=== PATIENT | male | born 1950 | race Caucasian/White ===

== ENCOUNTER 2018-10-07 05:34 | Inpatient (IN) ==
[2018-09-21 13:22] LABS: Basophils % 0.4 % (0.0-0.8); Eosinophils # 0.1 10*3/uL (0.0-0.87); Eosinophils % 1.3 % (0.00-10.9); Hematocrit 40.3 VOL% (42.0-52.0); Hemoglobin 13.1 GM/DL (14.0-18.0); Immature Granulocytes % 0.3 %; Immature Granulocytes Absolute 0.02 #; Lymphocytes # 2.8 10*3/uL (1.4-4.0); Lymphocytes % 42.3 % (21.2-54.2); Mean Corpuscular HGB Conc 32.5 GM/DL (32-36); Mean Platelet Volume 11.4 FL (9.6-12.0); Monocytes % 9.4 % (1.7-12.7); Neutrophils % 46.3 % (38.7-73.9); Platelet Count 208 T/CUMM (130-400); Red Blood Count 4.53 MC/CUMM (3.8-5.5); Red Cell Distribution Width 14.5 % (9.3-17.3); White Blood Count 6.7 T/CUMM (4-12)
[2018-09-21 13:41] LABS: Albumin 3.4 G/DL (3.4-5.0); Bilirubin,Total 0.5 MG/DL (0.2-1.0); Calcium 9.4 MG/DL (8.5-10.1); Osmolality,Calculated 282.1 MOS/KG (273-304); Total Protein 7.6 G/DL (6.4-8.3)
[2018-10-07] MEDS ORDERED: cefTRIAXone 1,000 MG in SYRINGE 1 EACH IV ONE (06:00)
[2018-10-07] MEDS ORDERED: cefTRIAXone 1,000 MG VIAL ONE (06:08)
[2018-10-07] MEDS: LACTATED RINGERS 1,000 ML IV SCH ×2 (06:18→09:01)
[2018-10-07] MEDS ORDERED: BUPIVACAINE 0.5% 50 ML VIAL ONE (06:23)
[2018-10-07] MEDS ORDERED: FAMOTIDINE 20 MG TABLET PO ONE (06:37)
[2018-10-07] MEDS ORDERED: DIAZEPAM 5 MG TABLET PO ONE (06:37)
[2018-10-07] MEDS ORDERED: DIAZEPAM 5 MG TABLET ONE (07:00)
[2018-10-07] MEDS ORDERED: FAMOTIDINE 20 MG TABLET ONE (07:00)
[2018-10-07] MEDS ORDERED: DEXAMETHASONE 4 MG/1 ML VIAL ONE ×2 (08:23→13:47)
[2018-10-07 13:13] LABS: Apearance,Urine Slightly Hazy (Clear); Bilirubin,Urine Negative (Negative); Blood, Urine Small mg/dL (Negative); Glucose,Urine (UA) Negative (Negative); Ketones,Urine Negative (Negative); Mucus,Urine Occasional /LPF (Occasional); Nitrite,Urine Negative (Negative); Protein,Urine Negative; RBC,Urine 5 /HPF (0-4); Sperm,Urine Occasional /HPF (Negative); Urine Color Yellow (Yellow); Urine Specific Gravity 1.019 (1.001-1.035); Urine Urobilinogen < 2.0 EU/DL (0.2-1.0); WBC,Urine 1 /HPF (0-6)
[2018-10-07] MEDS ORDERED: diphenhydrAMINE 50 MG/1 ML VIAL IV PRN (13:31)
[2018-10-07] MEDS ORDERED: LACTULOSE 20 GM/30 ML UDCUP PO PRN (13:31)
[2018-10-07] MEDS ORDERED: ONDANSETRON 4 MG/2 ML VIAL IV PRN ×2 (13:31→13:58)
[2018-10-07] MEDS: SODIUM CHLORIDE 0.9% 1,000 ML IV SCH ×2 (13:31→21:12)
[2018-10-07] MEDS ORDERED: HYDROmorphone 2 MG/1 ML VIAL IV PRN ×2 (13:35→13:58)
[2018-10-07] MEDS ORDERED: hydrALAZINE 25 MG TABLET PO PRN (13:36)
[2018-10-07] MEDS ORDERED: DESFLURANE 1 UNIT/15 MINUTE INH ONE (13:46)
[2018-10-07] MEDS ORDERED: PROPOFOL 200 MG/20 ML VIAL IV ONE (13:46)
[2018-10-07] MEDS ORDERED: SUFentanil 50 MCG/ML AMP ONE (13:46)
[2018-10-07] MEDS ORDERED: MIDAZOLAM 2 MG/2 ML VIAL ONE (13:46)
[2018-10-07] MEDS ORDERED: ACETAMINOPHEN 1,000 MG/100 ML VIAL IV ONE (13:47)
[2018-10-07] MEDS ORDERED: ePHEDrine 50 MG/ML AMP ONE (13:47)
[2018-10-07] MEDS ORDERED: GLYCOPYRROLATE 0.4 MG/2 ML VIAL ONE (13:47)
[2018-10-07] MEDS ORDERED: ONDANSETRON 4 MG/2 ML VIAL ONE (13:47)
[2018-10-07] MEDS ORDERED: LACTATED RINGERS 1,000 ML IV ONE (13:48)
[2018-10-07] MEDS ORDERED: ROCURONIUM 100 MG/10 ML VIAL IV ONE (13:48)
[2018-10-07] MEDS ORDERED: PHENYLEPHRINE 1 MG/10 ML SYRINGE IV ONE (13:48)
[2018-10-07] MEDS ORDERED: NEOSTIGMINE 10 MG/10 ML VIAL ONE (13:48)
[2018-10-07 14:44] LABS: Calcium 9.2 MG/DL (8.5-10.1); Osmolality,Calculated 291.8 MOS/KG (273-304)
[2018-10-07 14:59] LABS: Basophils % 0.2 % (0.0-0.8); Hematocrit 46.8 VOL% (42.0-52.0); Immature Granulocytes % 0.6 %; Immature Granulocytes Absolute 0.08 #; Lymphocytes # 1.5 10*3/uL (1.4-4.0); Mean Corpuscular HGB Conc 29.7 GM/DL (32-36); Mean Corpuscular Volume 97.9 FL (87-102); Mean Platelet Volume 12.4 FL (9.6-12.0); Monocytes % 3.2 % (1.7-12.7); Platelet Count 162 T/CUMM (130-400); Red Blood Count 4.78 MC/CUMM (3.8-5.5); Red Cell Distribution Width 14.9 % (9.3-17.3); White Blood Count 13.3 T/CUMM (4-12)
[2018-10-07 15:00] LABS: Hemoglobin 13.9 GM/DL (14.0-18.0)
[2018-10-07] MEDS: ACETAMINOPHEN 325 MG TABLET PO SCH ×2 (15:45→21:11)
[2018-10-07] MEDS ORDERED: ALBUTEROL/IPRATROPIUM 3 ML NEB RESP TX PRN (17:53)
[2018-10-07] MEDS: oxyCODONE/ACETAMINOPHEN 5-325 MG TABLET PO PRN (23:42)
[2018-10-08] MEDS: ACETAMINOPHEN 325 MG TABLET PO SCH ×4 (02:32→20:24)
[2018-10-08] MEDS: SODIUM CHLORIDE 0.9% 1,000 ML IV SCH ×2 (04:36→05:14)
[2018-10-08 05:03] LABS: Basophils % 0.1 % (0.0-0.8); Hematocrit 38.2 VOL% (42.0-52.0); Hemoglobin 12.2 GM/DL (14.0-18.0); Immature Granulocytes % 0.4 %; Immature Granulocytes Absolute 0.05 #; Lymphocytes # 1.4 10*3/uL (1.4-4.0); Lymphocytes % 10.8 % (21.2-54.2); Mean Corpuscular HGB Conc 31.9 GM/DL (32-36); Mean Corpuscular Volume 89.9 FL (87-102); Mean Platelet Volume 12.4 FL (9.6-12.0); Neutrophils % 79.7 % (38.7-73.9); Platelet Count 190 T/CUMM (130-400); Red Blood Count 4.25 MC/CUMM (3.8-5.5); Red Cell Distribution Width 14.6 % (9.3-17.3); White Blood Count 12.8 T/CUMM (4-12)
[2018-10-08 05:27] LABS: Calcium 9.3 MG/DL (8.5-10.1); Osmolality,Calculated 281.4 MOS/KG (273-304)
[2018-10-08] MEDS: LEVOFLOXACIN INJ 500 MG in PREMIX 1 EACH IV SCH (08:52)
[2018-10-08] MEDS: oxyCODONE/ACETAMINOPHEN 5-325 MG TABLET PO PRN (16:07)
[2018-10-08] MEDS: DOCUSATE SODIUM 100 MG CAPSULE PO SCH (20:24)
[2018-10-09] MEDS: oxyCODONE/ACETAMINOPHEN 5-325 MG TABLET PO PRN ×2 (00:52→13:21)
[2018-10-09] MEDS: ACETAMINOPHEN 325 MG TABLET PO SCH ×2 (03:19→09:44)
[2018-10-09] MEDS ORDERED: LISINOPRIL 20 MG TABLET PO SCH (09:00)
[2018-10-09] MEDS: DOCUSATE SODIUM 100 MG CAPSULE PO SCH (09:44)
[2018-10-09] MEDS: LEVOFLOXACIN INJ 500 MG in PREMIX 1 EACH IV SCH (09:45)
[2018-10-09] MEDS ORDERED: BISACODYL 10 MG SUPP RECTAL ONE (10:56)
[2018-10-09 12:00] VITALS: BP 138/86
== END 2018-10-09 13:50 | disposition home or self-care (01) | DRG 708 ==
LOC: N.OR 05:34 → N.SDSINP 05:34 → N.5E 14:42
PROVIDERS: ADMIT Surgery; ATTEND Surgery

== ENCOUNTER 2019-08-30 10:12 | Inpatient (IN) ==
[2019-08-30] MEDS ORDERED: SODIUM CHLORIDE 0.9% 1,000 ML IV STA ×2 (10:44→11:51)
[2019-08-30 10:53] LABS: Basophils % 0.3 % (0.0-0.8); Eosinophils % 0.1 % (0.00-10.9); Hematocrit 46.3 VOL% (42.0-52.0); Hemoglobin 15.6 GM/DL (14.0-18.0); Immature Granulocytes % 1.7 %; Immature Granulocytes Absolute 0.12 #; Lymphocytes # 0.5 10*3/uL (1.4-4.0); Lymphocytes % 6.6 % (21.2-54.2); Mean Corpuscular HGB Conc 33.7 GM/DL (32-36); Mean Corpuscular Volume 86.9 FL (87-102); Mean Platelet Volume 9.5 FL (9.6-12.0); Monocytes % 11.5 % (1.7-12.7); Neutrophils % 79.8 % (38.7-73.9); Platelet Count 226 T/CUMM (130-400); Red Blood Count 5.33 MC/CUMM (3.8-5.5); Red Cell Distribution Width 13.8 % (9.3-17.3); White Blood Count 7.1 T/CUMM (4-12)
[2019-08-30 11:05] LABS: Apearance,Urine CLOUDY (Clear); Bilirubin,Urine Negative (Negative); Blood, Urine Large mg/dL (Negative); Glucose,Urine (UA) >=500 mg/dL (Negative); Hyaline Casts,Urine 11 /LPF (0-3); Ketones,Urine 5 mg/dL (Negative); Mucus,Urine Occasional /LPF (Occasional); Nitrite,Urine Negative (Negative); Protein,Urine 100 MG/DL; RBC,Urine 2267 /HPF (0-4); Squamous Epithelial Cell,Urine Occasional /HPF (0-10); Urine Color Yellow (Yellow); Urine Specific Gravity 1.009 (1.001-1.035); Urine Urobilinogen < 2.0 EU/DL (0.2-1.0); WBC,Urine 57 /HPF (0-6)
[2019-08-30 11:15] LABS: Albumin 3.3 G/DL (3.4-5.0); Bilirubin,Total 0.5 MG/DL (0.2-1.0); Calcium 10.7 MG/DL (8.5-10.1); Osmolality,Calculated 264.8 MOS/KG (273-304); Total Protein 7.3 G/DL (6.4-8.3)
[2019-08-30] MEDS ORDERED: cefTRIAXone 1,000 MG in SODIUM CHLORIDE 0.9% 100 ML IV STA (11:42)
[2019-08-30] MEDS ORDERED: cefTRIAXone 1,000 MG in SYRINGE 1 EACH IV STA (11:43)
[2019-08-30] MEDS ORDERED: cefTRIAXone 1,000 MG VIAL ONE (11:44)
[2019-08-30] MEDS ORDERED: GLUCAGON 1 MG VIAL IM PRN (11:59)
[2019-08-30] MEDS ORDERED: MORPHINE 4 MG/1 ML VIAL IV PRN (11:59)
[2019-08-30] MEDS ORDERED: ACETAMINOPHEN 325 MG TABLET PO PRN (11:59)
[2019-08-30] MEDS ORDERED: DEXTROSE 50% 25 GM/50 ML VIAL IV PRN (11:59)
[2019-08-30] MEDS ORDERED: ONDANSETRON 4 MG/2 ML VIAL IV PRN (11:59)
[2019-08-30] MEDS: cefTRIAXone 1,000 MG in SYRINGE 1 EACH IV SCH (12:54)
[2019-08-30] MEDS: SODIUM CHLORIDE 0.9% 1,000 ML IV SCH (15:21)
[2019-08-30] MEDS: INSULIN REGULAR 100 UNIT/ML SUBCUT SCH ×2 (17:51→20:33)
[2019-08-31] MEDS: SODIUM CHLORIDE 0.9% 1,000 ML IV SCH ×2 (03:20→16:20)
[2019-08-31 04:18] LABS: Basophils % 0.3 % (0.0-0.8); Eosinophils % 1.1 % (0.00-10.9); Hematocrit 38.1 VOL% (42.0-52.0); Hemoglobin 13.1 GM/DL (14.0-18.0); Immature Granulocytes Absolute 0.07 #; Lymphocytes # 0.3 10*3/uL (1.4-4.0); Lymphocytes % 7.3 % (21.2-54.2); Mean Corpuscular HGB Conc 34.4 GM/DL (32-36); Mean Corpuscular Volume 85.4 FL (87-102); Monocytes % 12.8 % (1.7-12.7); Neutrophils % 76.5 % (38.7-73.9); Platelet Count 176 T/CUMM (130-400); Red Blood Count 4.46 MC/CUMM (3.8-5.5); White Blood Count 3.6 T/CUMM (4-12)
[2019-08-31 05:08] LABS: Calcium 9.1 MG/DL (8.5-10.1); Osmolality,Calculated 272.7 MOS/KG (273-304)
[2019-08-31 05:31] LABS: Albumin 2.5 G/DL (3.4-5.0); Bilirubin,Total 0.5 MG/DL (0.2-1.0); Calcium 9.2 MG/DL (8.5-10.1); Osmolality,Calculated 272.7 MOS/KG (273-304); Total Protein 5.7 G/DL (6.4-8.3); VLDL CHOLESTEROL 23.2 MG/DL
[2019-08-31 05:32] LABS: Risk Ratio 2.82
[2019-08-31] MEDS: methylPREDNISolone 4 MG TABLET PO SCH ×2 (10:28→21:03)
[2019-08-31] MEDS: INSULIN REGULAR 100 UNIT/ML SUBCUT SCH ×4 (10:28→21:05)
[2019-08-31] MEDS: cefTRIAXone 1,000 MG in SYRINGE 1 EACH IV SCH (12:51)
[2019-08-31] MEDS: METHEN/SOD PHOS/METH BLUE/HYOS TABLET PO SCH ×3 (12:51→21:03)
[2019-08-31] MEDS ORDERED: oxyCODONE/ACETAMINOPHEN 5-325 MG TABLET PO PRN (14:20)
[2019-08-31] MEDS: SERTRALINE 25 MG TABLET PO SCH (21:03)
[2019-08-31] MEDS: OXYBUTYNIN 5 MG TABLET PO SCH (21:03)
[2019-08-31] MEDS: MIRTAZAPINE 15 MG TABLET PO SCH (21:03)
[2019-09-01] MEDS: SODIUM CHLORIDE 0.9% 1,000 ML IV SCH ×3 (00:19→09:58)
[2019-09-01 06:42] LABS: Basophils % 0.3 % (0.0-0.8); Eosinophils % 0.7 % (0.00-10.9); Hematocrit 38.9 VOL% (42.0-52.0); Hemoglobin 13.2 GM/DL (14.0-18.0); Immature Granulocytes % 2.6 %; Immature Granulocytes Absolute 0.08 #; Lymphocytes # 0.3 10*3/uL (1.4-4.0); Lymphocytes % 10.9 % (21.2-54.2); Mean Corpuscular HGB Conc 33.9 GM/DL (32-36); Mean Platelet Volume 10.1 FL (9.6-12.0); Monocytes % 13.8 % (1.7-12.7); Neutrophils % 71.7 % (38.7-73.9); Platelet Count 186 T/CUMM (130-400); Red Blood Count 4.47 MC/CUMM (3.8-5.5)
[2019-09-01 07:07] LABS: Calcium 9.2 MG/DL (8.5-10.1); Osmolality,Calculated 275.2 MOS/KG (273-304)
[2019-09-01] MEDS: METHEN/SOD PHOS/METH BLUE/HYOS TABLET PO SCH ×4 (08:13→20:42)
[2019-09-01] MEDS: OXYBUTYNIN 5 MG TABLET PO SCH ×2 (08:13→20:42)
[2019-09-01] MEDS: methylPREDNISolone 4 MG TABLET PO SCH ×2 (08:13→20:42)
[2019-09-01] MEDS: INSULIN REGULAR 100 UNIT/ML SUBCUT SCH ×4 (08:41→20:44)
[2019-09-01] MEDS ORDERED: DOCUSATE SODIUM 100 MG CAPSULE PO PRN (08:56)
[2019-09-01] MEDS ORDERED: MAGNESIUM HYDROXIDE SUSP 30 ML UDCUP PO PRN (08:57)
[2019-09-01] MEDS ORDERED: MYLANTA/LIDO VISC/DIPH 300 ML BOTTLE SWISH/SPIT PRN (08:57)
[2019-09-01] MEDS: FLUCONAZOLE 200 MG TABLET PO SCH (10:02)
[2019-09-01] MEDS: cefTRIAXone 1,000 MG in SYRINGE 1 EACH IV SCH (12:32)
[2019-09-01] MEDS: CLORAZEPATE 7.5 MG TABLET PO SCH ×2 (16:31→20:42)
[2019-09-01] MEDS: MIRTAZAPINE 15 MG TABLET PO SCH (20:42)
[2019-09-01] MEDS: SERTRALINE 25 MG TABLET PO SCH (20:42)
[2019-09-02 05:37] LABS: Eosinophils % 0.3 % (0.00-10.9); Hematocrit 35.3 VOL% (42.0-52.0); Hemoglobin 11.6 GM/DL (14.0-18.0); Immature Granulocytes % 2.2 %; Immature Granulocytes Absolute 0.07 #; Lymphocytes # 0.4 10*3/uL (1.4-4.0); Lymphocytes % 11.7 % (21.2-54.2); Mean Corpuscular HGB Conc 32.9 GM/DL (32-36); Mean Corpuscular Volume 89.4 FL (87-102); Mean Platelet Volume 10.3 FL (9.6-12.0); Monocytes % 12.9 % (1.7-12.7); Neutrophils % 72.9 % (38.7-73.9); Platelet Count 165 T/CUMM (130-400); Red Blood Count 3.95 MC/CUMM (3.8-5.5); Red Cell Distribution Width 14.4 % (9.3-17.3); White Blood Count 3.2 T/CUMM (4-12)
[2019-09-02 06:07] LABS: Calcium 8.9 MG/DL (8.5-10.1)
[2019-09-02] MEDS: OXYBUTYNIN 5 MG TABLET PO SCH (08:49)
[2019-09-02] MEDS: METHEN/SOD PHOS/METH BLUE/HYOS TABLET PO SCH ×2 (08:49→12:14)
[2019-09-02] MEDS: CLORAZEPATE 7.5 MG TABLET PO SCH (08:49)
[2019-09-02] MEDS: FLUCONAZOLE 200 MG TABLET PO SCH (08:50)
[2019-09-02] MEDS: methylPREDNISolone 4 MG TABLET PO SCH (08:50)
[2019-09-02] MEDS: INSULIN REGULAR 100 UNIT/ML SUBCUT SCH ×2 (08:51→11:17)
[2019-09-02] MEDS ORDERED: PANTOPRAZOLE 40 MG TABLET PO SCH (09:30)
[2019-09-02 12:07] VITALS: BP 120/84
[2019-09-02] MEDS: cefTRIAXone 1,000 MG in SYRINGE 1 EACH IV SCH (12:15)
== END 2019-09-02 15:22 | disposition home health service (06) | DRG 683 ==
LOC: N.ED 10:12 → N.EDINP 11:59 → N.4E 13:32
PROVIDERS: ADMIT Internal Medicine; ATTEND Internal Medicine

== ENCOUNTER 2019-10-05 11:29 | Inpatient (IN) ==
[2019-10-05 11:55] LABS: Basophils % 0.4 % (0.0-0.8); Eosinophils % 0.8 % (0.00-10.9); Hematocrit 37.2 VOL% (42.0-52.0); Hemoglobin 12.2 GM/DL (14.0-18.0); Immature Granulocytes % 2.8 %; Immature Granulocytes Absolute 0.15 #; Lymphocytes % 19.2 % (21.2-54.2); Mean Corpuscular HGB Conc 32.8 GM/DL (32-36); Mean Corpuscular Volume 91.4 FL (87-102); Mean Platelet Volume 9.8 FL (9.6-12.0); Monocytes % 17.1 % (1.7-12.7); Neutrophils % 59.7 % (38.7-73.9); Platelet Count 231 T/CUMM (130-400); Red Blood Count 4.07 MC/CUMM (3.8-5.5); White Blood Count 5.3 T/CUMM (4-12)
[2019-10-05] MEDS ORDERED: SODIUM CHLORIDE 0.9% 1,000 ML IV STA (12:11)
[2019-10-05 12:19] LABS: Albumin 2.8 G/DL (3.4-5.0); Anisocytosis 1+; Atypical Lymphocytes Few; Band Neutrophils 3 % (0-10); Bilirubin,Total 0.7 MG/DL (0.2-1.0); Calcium 10.3 MG/DL (8.5-10.1); Giant Platelets Few; Lymphocytes 17 % (20-55); Macrocytosis 1+; Osmolality,Calculated 265.7 MOS/KG (273-304); Platelet Estimate Normal; Segmented Neutrophils 67 % (50-85); Smudge Cells Few; Total Cells Counted 100; Total Protein 6.6 G/DL (6.4-8.3)
[2019-10-05 13:01] LABS: Thyroid Stimulating Hormone 1.23 uIU/ml (0.358-3.74)
[2019-10-05 14:13] LABS: Apearance,Urine Slightly Hazy (Clear); Protein,Urine Trace MG/DL; Urine Color Amber (Yellow)
[2019-10-05 14:14] LABS: Bilirubin,Urine Negative (Negative); Blood, Urine Large mg/dL (Negative); Glucose,Urine (UA) Negative (Negative); Ketones,Urine Negative (Negative); Nitrite,Urine Negative (Negative); Urine Urobilinogen < 2.0 EU/DL (0.2-1.0)
[2019-10-05 14:15] LABS: Bacteria,Urine Trace /HPF (Few); RBC,Urine TNTC /HPF (0-4); Squamous Epithelial Cell,Urine Rare /HPF (0-10); WBC,Urine Occasional /HPF (0-6)
[2019-10-05] MEDS ORDERED: LEVOFLOXACIN INJ 500 MG in PREMIX 1 EACH IV STA (14:31)
[2019-10-05] MEDS ORDERED: ACETAMINOPHEN 325 MG TABLET PO PRN (14:55)
[2019-10-05] MEDS ORDERED: GLUCAGON 1 MG VIAL IM PRN (14:55)
[2019-10-05] MEDS ORDERED: ONDANSETRON 4 MG/2 ML VIAL IV PRN (14:55)
[2019-10-05] MEDS ORDERED: DEXTROSE 50% 25 GM/50 ML VIAL IV PRN (14:55)
[2019-10-05] MEDS ORDERED: FUROSEMIDE 40 MG/4 ML VIAL IV ONE (16:07)
[2019-10-05] MEDS ORDERED: SODIUM CHLORIDE 0.9% 1,000 ML IV SCH (16:30)
[2019-10-05 17:47] LABS: Troponin I < 0.015 NG/ML (0.00-0.045)
[2019-10-05] MEDS: ENOXAPARIN 30 MG/0.3 ML SYRINGE SUBCUT SCH (18:00)
[2019-10-05 20:02] LABS: Troponin I < 0.015 NG/ML (0.00-0.045)
[2019-10-05] MEDS: INSULIN LISPRO 100 UNIT/ML SUBCUT SCH (21:30)
[2019-10-06 06:15] LABS: Basophils % 0.8 % (0.0-0.8); Eosinophils % 1.6 % (0.00-10.9); Hematocrit 31.3 VOL% (42.0-52.0); Hemoglobin 10.2 GM/DL (14.0-18.0); Immature Granulocytes % 4.3 %; Immature Granulocytes Absolute 0.11 #; Lymphocytes # 0.6 10*3/uL (1.4-4.0); Mean Corpuscular HGB Conc 32.6 GM/DL (32-36); Mean Corpuscular Volume 91.5 FL (87-102); Mean Platelet Volume 10.4 FL (9.6-12.0); Monocytes % 22.4 % (1.7-12.7); Neutrophils % 48.9 % (38.7-73.9); Platelet Count 209 T/CUMM (130-400); Red Blood Count 3.42 MC/CUMM (3.8-5.5); Red Cell Distribution Width 16.1 % (9.3-17.3); White Blood Count 2.6 T/CUMM (4-12)
[2019-10-06 06:41] LABS: Calcium 9.2 MG/DL (8.5-10.1); Risk Ratio 3.21
[2019-10-06 06:50] LABS: Eosinophils 3 % (0-10); Hypochromasia 1+; Lymphocytes 16 % (20-55); Nucleated Red Blood Cells 1 (0-5); Platelet Estimate Adequate; Segmented Neutrophils 61 % (50-85); Total Cells Counted 100
[2019-10-06 06:51] LABS: Macrocytosis Slight
[2019-10-06] MEDS ORDERED: HYDROCORTISONE 100 MG VIAL IV ONE (08:21)
[2019-10-06 09:01] LABS: Total Protein (Chem) 5.8 G/DL (6.4-8.3)
[2019-10-06] MEDS: LEVOFLOXACIN INJ 500 MG in PREMIX 1 EACH IV SCH (09:08)
[2019-10-06] MEDS: FUROSEMIDE 40 MG/4 ML VIAL IV SCH (09:08)
[2019-10-06] MEDS: OXYBUTYNIN XL 10 MG TABLET PO SCH (09:09)
[2019-10-06] MEDS: INSULIN LISPRO 100 UNIT/ML SUBCUT SCH ×4 (10:07→20:53)
[2019-10-06 11:05] LABS: Albumin (SPE) 3.1 G/DL (3.2-5.3); Albumin (SPE) Rel % 53.7 %; Alpha 1 (SPE) 0.3 G/DL (0.1-0.4); Alpha 1 (SPE) Rel % 4.6 %; Alpha 2 (SPE) 0.8 G/DL (0.4-1.0); Beta (SPE) 0.7 G/DL (0.5-1.1); Beta (SPE) Rel % 12.1 %; Gamma (SPE) Rel % 15.6 %
[2019-10-06 11:11] LABS: Gamma (SPE) 0.9 G/DL (0.7-1.7)
[2019-10-06] MEDS: oxyCODONE/ACETAMINOPHEN 5-325 MG TABLET PO PRN ×2 (13:36→18:57)
[2019-10-06] MEDS: HYDROCORTISONE 100 MG VIAL IV SCH ×2 (13:36→20:42)
[2019-10-06] MEDS: ENOXAPARIN 30 MG/0.3 ML SYRINGE SUBCUT SCH (17:45)
[2019-10-07] MEDS: HYDROCORTISONE 100 MG VIAL IV SCH ×4 (03:00→21:50)
[2019-10-07 05:44] LABS: Basophils % 0.3 % (0.0-0.8); Eosinophils % 0.3 % (0.00-10.9); Hematocrit 29.5 VOL% (42.0-52.0); Hemoglobin 9.4 GM/DL (14.0-18.0); Immature Granulocytes % 3.2 %; Immature Granulocytes Absolute 0.12 #; Lymphocytes # 0.8 10*3/uL (1.4-4.0); Lymphocytes % 21.1 % (21.2-54.2); Mean Corpuscular HGB Conc 31.9 GM/DL (32-36); Mean Corpuscular Volume 92.2 FL (87-102); Mean Platelet Volume 10.4 FL (9.6-12.0); Monocytes % 18.9 % (1.7-12.7); Neutrophils % 56.2 % (38.7-73.9); Platelet Count 227 T/CUMM (130-400); Red Cell Distribution Width 15.8 % (9.3-17.3); White Blood Count 3.7 T/CUMM (4-12)
[2019-10-07 06:11] LABS: Calcium 9.1 MG/DL (8.5-10.1); Osmolality,Calculated 262.8 MOS/KG (273-304)
[2019-10-07 06:52] LABS: Band Neutrophils 11 % (0-10); Hypochromasia 2+; Lymphocytes 22 % (20-55); Metamyelocytes 2 %; Platelet Estimate Normal; Segmented Neutrophils 47 % (50-85); Total Cells Counted 100
[2019-10-07] MEDS: INSULIN LISPRO 100 UNIT/ML SUBCUT SCH ×4 (07:52→23:31)
[2019-10-07] MEDS: LEVOFLOXACIN INJ 500 MG in PREMIX 1 EACH IV SCH (09:46)
[2019-10-07] MEDS: OXYBUTYNIN XL 10 MG TABLET PO SCH (09:47)
[2019-10-07] MEDS: FUROSEMIDE 40 MG/4 ML VIAL IV SCH (09:47)
[2019-10-07] MEDS ORDERED: MAGNESIUM SULF RIDER 2 GM in PREMIX 1 EACH IV PRN (10:01)
[2019-10-07] MEDS ORDERED: MAGNESIUM SULF RIDER 4 GM in PREMIX 1 EACH IV PRN (10:01)
[2019-10-07 10:56] LABS: Total Protein 24 Hr Ur Result 418 MG/24HR (0-149.1); Total Volume,Urine 1100 ML (400-2000)
[2019-10-07] MEDS ORDERED: MEROPENEM 2,000 MG in SODIUM CHLORIDE 0.9% 100 ML IV SCH (12:00)
[2019-10-07] MEDS: MEROPENEM 500 MG in SODIUM CHLORIDE 0.9% 100 ML IV SCH ×2 (12:22→17:32)
[2019-10-07] MEDS ORDERED: MAGNESIUM SULF RIDER 2 GM in PREMIX 1 EACH IV ONE (12:55)
[2019-10-07] MEDS: ENOXAPARIN 30 MG/0.3 ML SYRINGE SUBCUT SCH (17:32)
[2019-10-08] MEDS: MEROPENEM 500 MG in SODIUM CHLORIDE 0.9% 100 ML IV SCH ×2 (00:22→06:32)
[2019-10-08] MEDS: HYDROCORTISONE 100 MG VIAL IV SCH ×2 (01:22→09:19)
[2019-10-08 05:29] LABS: Basophils % 0.3 % (0.0-0.8); Hematocrit 27.4 VOL% (42.0-52.0); Hemoglobin 9.2 GM/DL (14.0-18.0); Immature Granulocytes % 1.9 %; Immature Granulocytes Absolute 0.07 #; Lymphocytes # 0.6 10*3/uL (1.4-4.0); Lymphocytes % 15.3 % (21.2-54.2); Mean Corpuscular HGB Conc 33.6 GM/DL (32-36); Mean Corpuscular Volume 89.8 FL (87-102); Mean Platelet Volume 10.1 FL (9.6-12.0); Monocytes % 10.1 % (1.7-12.7); Neutrophils % 72.4 % (38.7-73.9); Platelet Count 226 T/CUMM (130-400); Red Blood Count 3.05 MC/CUMM (3.8-5.5); Red Cell Distribution Width 15.9 % (9.3-17.3); White Blood Count 3.7 T/CUMM (4-12)
[2019-10-08 05:57] LABS: Osmolality,Calculated 276.1 MOS/KG (273-304)
[2019-10-08] MEDS: OXYBUTYNIN XL 10 MG TABLET PO SCH (08:54)
[2019-10-08] MEDS: FUROSEMIDE 40 MG/4 ML VIAL IV SCH (09:19)
[2019-10-08] MEDS: INSULIN LISPRO 100 UNIT/ML SUBCUT SCH (09:23)
[2019-10-08 10:54] LABS: Albumin (UPE) 224.5 MG/24H; Albumin (UPE) Rel % 53.7 %; Alpha 1 (UPE) 19.2 MG/24H; Alpha 1 (UPE) Rel % 4.6 %; Alpha 2 (UPE) 39.3 MG/24H; Alpha 2 (UPE) Rel % 9.4 %; Beta (UPE) 6.7 MG/24H; Beta (UPE) Rel % 1.6 %; Gamma (UPE) 128.3 MG/24H; Gamma (UPE) Rel % 30.7 %
[2019-10-08 11:47] VITALS: BP 124/67
== END 2019-10-08 11:20 | DRG 690 ==
LOC: N.ED 11:29 → N.EDINP 14:54 → N.TELES 15:33
PROVIDERS: ADMIT Internal Medicine; ATTEND Internal Medicine